=== PATIENT | male | born 1950 | race Caucasian/White ===

== ENCOUNTER → 2018-11-03 09:24 | Outpatient (CLI) | payer MEDICARE, SELFPAY ==
--- NOTE | 2018-11-03 09:26 | MR_ITS ---
MR head/brain wo/w con Ordering Physician: Steve Valle MD Patient Age: 68 years: Male HISTORY: ITS.REASON: FACIAL NUMBNESS, LEFT ARM WEAKNESS Facial numbness and left arm weakness. Left-sided of face numb weakness left arm and left leg. Slurred speech 4 days. TECHNIQUE: : Precontrast Multiplanar FLAIR, T1, T2 weighted images along with axial diffusion/ADC imaging performed on 1.5 T. Siemens, MRI. Additional blood sensitiveT2*performed Postcontrast imaging [id number] ProHance T1-weighted images axial & coronal plane performed COMPARISON :No previous studies for comparison Head CT available FINDINGS There is a 9 mm round area of high signal on diffusion images at mid right thalamus .. . There is some associated T2 signal & T2 scan through likely present. However overall with given history I favor this is most likely a recent lacunar infarct here at the right thalamus. No blood is evident here on the blood sensitive sequences. This area shows no enhancement postcontrast, which speaks against a small mass lesion & there is there is no surrounding edema. No associated lesions elsewhere. . The FLAIR images do show some scattered small high signal foci in the deep white matter regions bilaterally most compatible with pre-existing minimal chronic small vessel deep white matter ischemic gliotic foci in changes commonly seen in nature in brain. Subtle rim of high signal about the ventricles reflect aging changes of dependent edema and likely some small vessel changes here as well. The midbrain, camelia and posterior fossa appear satisfactory. No lesions evident.. The cranial cervical junction is normal. Sella normal. Ventricles and basal cisterns appear satisfactory. Mild diffuse cerebral atrophy noted. Minor mucosal thickening floor the maxillary sinuses and borderline mucosal thickening ethmoid air cells. Otherwise paranasal sinuses are clear. No air-fluid levels or prominent findings. Generous Deviation nasal septum with convexity to the to the left The CP angles are clear. IACs unremarkable. Mastoid air cells unremarkable. Scalp and skull unremarkable. IMPRESSION 1. Findings support Subacute Lacunar Infarct at the mid right thalamus. ... ] ... Round 9.1 mm well-defined focal area mid right thalamus ....Signal patterns are most compatible with a recent lacunar infarct .... No blood evident here on blood sensitive sequences. ....No enhancement of this area postcontrast 2. Mild chronic small vessel deep white matter ischemic gliotic changes seen elsewhere at cerebral hemispheres
--- NOTE | 2018-11-03 10:15 | HMH.ITSHM ---
Current Home Medications as stated by this patient Sebastian Latif or warehouse representative. []INVOKANA ASPIRIN LISINOPRIL ATORVASTATIN
== END ==
PROVIDERS: PCP Family Medicine; Visit Provider Family Medicine
DX: R29.898 Other symptoms and signs involving the musculoskeletal system (principal); R20.0 Anesthesia of skin
CPT/HCPCS: 70553; A9576

== ENCOUNTER 2018-11-24 09:04 | Outpatient (RCR) | payer MEDICARE, SELFPAY | END 2018-11-24 09:10 | disposition home or self-care (01) | LOC: OT 09:04 | PROVIDERS: Visit Provider Family Medicine | DX: I63.81 Other cerebral infarction due to occlusion or stenosis of small artery (principal); R29.818 Other symptoms and signs involving the nervous system | CPT/HCPCS: 97165 ==

== ENCOUNTER → 2020-08-02 08:47 | Outpatient (CLI) | payer MEDICARE, SELFPAY ==
[2020-08-02 10:15] LABS: Coronavirus 19 IgG Antibody Negative (Negative); Coronavirus 19 IgM Antibody Negative (Negative)
== END ==
PROVIDERS: Visit Provider Internal Medicine Gastroenterology
DX: Z01.818 Encounter for other preprocedural examination (principal); Z11.52 Encounter for screening for COVID-19; Z12.11 Encounter for screening for malignant neoplasm of colon
CPT/HCPCS: 36415; 86328

== ENCOUNTER 2020-08-04 07:20 | Day surgery (SDC) | payer MEDICARE, SELFPAY ==
[2020-07-28 11:55] VITALS: BMI 36.5
[2020-08-04 07:36] VITALS: BP 131/74; PULSE 86; RESP 18; TEMP 36.1; O2SAT 99
--- NOTE | 2020-08-04 07:50 | P.PN_ITS ---
[facility] Anesthesia Checklist - Patient Identification Patient Identification: Arm Band - Structural Data Admitted From: Home Planned Operative Procedure/s: Colonoscopy Consent for Planned Operative Procedure(s) Verified: Yes Verified Documents: Surgical Consent, History and Physical - NPO Status Verified Time NPO: 00:00 - Additional verifications Anesthesia Reactions: No - Airway Assessment C-Spine Mobility Assessed: Yes (mp2) TMJ Mobility Assessed: Yes Dentition: Good Dentition - Neurological Assessment Level of Consciousness: Awake, Alert - Anesthesia Plan Anesthesia Risk discussed: Yes Anesthesia Plan: Verified ASA Class: III Anesthesia Type: MAC [facility] History I have reviewed the patient's past medical history: Yes Medical History: Reports:: Cerebrovascular Accident, Diabetes Mellitus Type 2, Hyperlipidemia, Hypertension Denies:: Cancer, Diabetes Mellitus Type 1, Internal Pacemaker, MRSA, Seizures *Have you ever received a pneumonia vaccine?: Yes (2018) *Have you received a flu vaccine this season?: Yes Anesthesia experience/problems:: nac Laterality Cases: Bilateral: Tonsillectomy Other Surgeries: Yes: Hernia Repair, Other. No: Pacemaker Amputation: No Fractures: Yes (ARM) - *Social History Last grade of school completed: Some college Smoking Status: Never smoker Alcohol Intake: current Alcohol Intake Frequency:: a few times a month Substance Use Type: denies use *Occupational Status:: retired Housing: house Household Members: significant other *Travel in the last 8 weeks: None Family Hx:: Unable to obtain
[2020-08-04 07:55] VITALS: O2SAT 97
[2020-08-04 07:55] LABS: POC Glucose,Bedside 131 (70-110)
--- NOTE | 2020-08-04 07:57 | HMH.PROC ---
[facility] Procedure Note Procedure Note:: Colonoscopy Procedure Report: Colonoscopy with cold snare polypectomy Endoscopist: David Irizarry II, MD Referring physician: Steve Valle MD Date of Procedure: August 04, 2020 Equipment: Olympus 180 variable stiffness pediatric colonoscope Sedation: MAC sedation Indication: Mr. Latif is a 69-year-old gentleman who had initial colonoscopy in July 2019 and had 7 adenomatous polyps removed ranging in size from 3 to 14 mm. He reports no abdominal pain, weight loss, change in his bowel habits or rectal bleeding. He reports no family history of colon cancer. Procedure: Prior to the procedure, a history and physical exam was performed, and patient's medications and allergies were reviewed. The risks, benefits and alternatives of the sedation and procedure were discussed with the patient. All questions were answered and informed consent was obtained. The patient was brought to the procedure room. Patient identification and proposed procedure were verified by the physician and the nurse. The patient was placed in a left lateral decubitus position and the scope was passed under direct vision. Throughout the procedure, the patient's blood pressure, pulse, and oxygen saturations were monitored continuously. The colonoscopy was accomplished without difficulty. The patient tolerated the procedure well. Findings: On digital rectal examination there was normal rectal tone. There were no external hemorrhoids. The prostate was 2+, mildly firm but symmetric without nodules. The colonoscope was introduced through the anal canal to the rectum and advanced to the cecum. The ileocecal valve and appendiceal orifice were identified. The scope was advanced a short distance into the ileum which appeared grossly normal. The scope was then withdrawn into the colon. The cecum, ascending and transverse colon and mucosa were grossly normal. There were a total of 6 diminutive polyps (descending x3 (3, 3 and 4 mm) and sigmoid x3 (2, 3 and 4 mm)) all removed via cold snare polypectomy. There were scattered diverticuli throughout the descending and sigmoid colon (LEFT colon). The rectum itself was normal. Upon retroflexion within the rectum there were grade 1-2 internal hemorrhoids. The preparation was excellent throughout with [place] Preparation Score of 9. The cecal time was 12 minutes. Impression: 1. Diminutive colonic polyps x6 (2-4 mm) 2. Left-sided diverticulosis 3. Grade 1-2 internal hemorrhoids Plan: I will follow up the polyp pathology and recommend repeat colonoscopy again in 3 years based upon the number, size and polyp histology. I would encourage fiber supplementation on a long-term daily maintenance basis.
[2020-08-04 08:18] VITALS: BP 81/45; PULSE 76; RESP 12; TEMP 36.2; O2SAT 93
[2020-08-04 08:28] VITALS: BP 94/52; PULSE 84; RESP 16; O2SAT 95
[2020-08-04 08:38] VITALS: BP 99/58; PULSE 76; RESP 16; O2SAT 96
[2020-08-04 08:48] VITALS: BP 110/65; PULSE 74; RESP 16; TEMP 36.2; O2SAT 96
== END 2020-08-04 08:51 | disposition home or self-care (01) ==
LOC: OUTP 07:24
PROVIDERS: PCP Family Medicine; Visit Provider Internal Medicine Gastroenterology
PROC: 0DJD8ZZ Inspection of Lower Intestinal Tract, Via Natural or Artificial Opening Endoscopic (ICD-10-PCS; CPT 45378; principal; 2020-08-04 08:30)
DX: Z09 Encounter for follow-up examination after completed treatment for conditions other than malignant neoplasm (principal); Z86.010 Personal history of colon polyps; K63.5 Polyp of colon; K64.1 Second degree hemorrhoids; K57.30 Diverticulosis of large intestine without perforation or abscess without bleeding; I10 Essential (primary) hypertension; E78.5 Hyperlipidemia, unspecified; E11.9 Type 2 diabetes mellitus without complications; Z86.73 Personal history of transient ischemic attack (TIA), and cerebral infarction without residual deficits; Z90.49 Acquired absence of other specified parts of digestive tract; Z79.899 Other long term (current) drug therapy
CPT/HCPCS: 45385; 82962; 88305

== ENCOUNTER → 2020-08-07 10:24 | Outpatient (POV) | payer MEDICARE, SELFPAY | PROVIDERS: Visit Provider Audiologist | DX: Z00.00 Encounter for general adult medical examination without abnormal findings (principal) ==

== ENCOUNTER → 2020-08-28 08:55 | Outpatient (POV) | payer MEDICARE, SELFPAY | PROVIDERS: Visit Provider Audiologist | DX: Z00.00 Encounter for general adult medical examination without abnormal findings (principal) ==

== ENCOUNTER → 2021-06-12 10:22 | Outpatient (CLI) | payer MEDICARE, SELFPAY ==
[2021-06-12 11:12] LABS: Hemoglobin A1C 7.2 % (4.0-6.0)
[2021-06-12 11:40] LABS: Glucose,Random 126 mg/dL (74-100)
== END ==
PROVIDERS: Visit Provider Family Medicine
DX: E11.9 Type 2 diabetes mellitus without complications (principal)
CPT/HCPCS: 36415; 82947; 83036

== ENCOUNTER → 2022-09-27 17:10 | Outpatient (CLI) | payer MEDICARE, SELFPAY ==
[2022-09-27 19:30] LABS: Microscopic, Urine URINE MICROSCOPIC (MICROSCOPIC)
[2022-09-27 19:37] LABS: Appearance,Urine CLOUDY (Clear); Bilirubin,Urine Negative (Negative); Blood, Urine 3+ (Negative); Color,Urine YELLOW (Yellow); Glucose,Urine (UA) 3+ (Negative); Ketones,Urine Negative (Negative); Leukocyte Esterase,Urine 1+ (Negative); Nitrate,Urine POSITIVE (Negative); Protein,Urine 1+ (Negative); Specific Gravity, Urine 1.025 (1.005-1.030); Urobilinogen,Urine 0.2 EU/dl (0.2)
[2022-09-27 20:10] LABS: Bacteria,Urine 3+ /lpf
== END ==
PROVIDERS: PCP Family Medicine; Visit Provider Family Medicine
DX: N40.1 Benign prostatic hyperplasia with lower urinary tract symptoms (principal); N39.498 Other specified urinary incontinence; N39.0 Urinary tract infection, site not specified; R33.8 Other retention of urine; B96.1 Klebsiella pneumoniae [K. pneumoniae] as the cause of diseases classified elsewhere
CPT/HCPCS: 81001; 87086; 87088; 87186

== ENCOUNTER → 2022-10-08 13:12 | Outpatient (CLI) | payer MEDICARE, SELFPAY | PROVIDERS: PCP Family Medicine; Visit Provider Family Medicine | DX: R06.83 Snoring; G47.33 Obstructive sleep apnea (adult) (pediatric) | CPT/HCPCS: G0399 ==

== ENCOUNTER 2022-11-08 04:49 | Emergency (ER) | payer MEDICARE, SELFPAY ==
[2022-11-08] VITALS (14 sets, daily range): BP systolic 74–119; BP diastolic 35–56; PULSE 94–124; RESP 16–26; TEMP 37.8–39.9; O2SAT 88–96; BMI 38.0
--- NOTE | 2022-11-08 04:39 | ECG_ITS ---
APPROVED REPORT Exam: Resting ECG HR:125 bpm ECG Measurements Heart Rate 125 AXES DE 151 P 28 QRSd 88 QRS 74 QT 269 T -32 QTc 343 Conclusion SINUS TACHYCARDIA NONSPECIFIC ST & T-WAVE ABNORMALITY ABNORMAL ECG UNCONFIRMED REPORT Electronically signed by : Sebastian Reynolds MD 11/09/2022 20:42:22
--- NOTE | 2022-11-08 04:52 | XR_ITS ---
PROCEDURE INFORMATION: Exam: XR Pelvis Exam date and time: 11/08/2022 6:06 AM Age: 72 years old Clinical indication: Injury or trauma; Fall TECHNIQUE: Imaging protocol: Radiologic exam of the pelvis. Views: 1 or 2 view. Two AP images of the pelvis COMPARISON: CT ABDOMEN PELVIS W CON 11/08/2022 5:40 AM FINDINGS: Bones/joints: Postop changes thoracolumbar fusion. There is a mild scoliosis. Degenerative changes of the spine. The bony pelvis appears intact, the hips are unremarkable. Soft tissues: Unremarkable. IMPRESSION: There is no evidence of acute fracture or malalignment.
--- NOTE | 2022-11-08 04:53 | XR_ITS ---
PROCEDURE INFORMATION: Exam: XR Chest Exam date and time: 11/08/2022 6:06 AM Age: 72 years old Clinical indication: Injury or trauma; Fall; Additional info: SOA TECHNIQUE: Imaging protocol: Radiologic exam of the chest. Views: 1 view. COMPARISON: CT CHEST WO CON 11/08/2022 5:49 AM FINDINGS: Lungs: Hypoventilatory changes of the lungs, with perihilar vascular crowding and a diffuse increase in pulmonary parenchymal density. Mild atelectasis medial right lung base. Pleural spaces: Unremarkable. No pleural effusion. No pneumothorax. Heart/Mediastinum: Unremarkable. No cardiomegaly. Bones/joints: Postop thoracolumbar fusion. No acute fracture evident. IMPRESSION: Mild dependent atelectasis at the right lung base.
--- NOTE | 2022-11-08 04:56 | CT_ITS ---
PROCEDURE INFORMATION: Exam: CT Abdomen And Pelvis With Contrast Exam date and time: 11/08/2022 5:40 AM Age: 72 years old Clinical indication: Nausea TECHNIQUE: Imaging protocol: Computed tomography of the abdomen and pelvis with contrast. Radiation optimization: All CT scans at this facility use at least one of these dose optimization techniques: automated exposure control; mA and/or kV adjustment per patient size (includes targeted exams where dose is matched to clinical indication); or iterative reconstruction. Contrast material: ISOVUE; Contrast volume: 75 ml; Contrast route: IV; REPORTING DATA: Count of CT and Cardiac NM exams in prior 12 months: This patient has received 3 known CTs and 0 known cardiac nuclear medicine studies in the 12 months prior to the current study. COMPARISON: No relevant prior studies available. FINDINGS: Lungs: Mild dependent atelectasis and ground-glass opacities in the lung bases. Coronary arteries: Coronary artery calcifications are present. Liver: There is a diffuse decrease in liver parenchymal density, consistent with fatty infiltration. Gallbladder and bile ducts: Normal. No calcified stones. No ductal dilation. Pancreas: Normal. No ductal dilation. Spleen: The spleen demonstrates punctate calcifications, consistent with remote granulomatous organism exposure. Adrenal glands: Normal. No mass. Kidneys and ureters: Small amount of perinephric fluid bilaterally. Small amount of free fluid inferior to the tip of the liver and within the right paracolic gutter. Renal scarring is seen on the right associated with a 12 mm calculus. Nonspecific focal gas within the superior right renal collecting system. Punctate non-obstructing calculus lower pole of the right kidney. 4.2 cm simple cyst lower pole right kidney. The left kidney is unremarkable. There is mild right hydronephrosis. 12 x 7 mm calculus proximal right ureter, this can be seen on the motor man image. Stomach and bowel: There is no evidence of intestinal perforation or obstruction. Anastomotic clips involving small bowel loops in the mid abdomen. Appendix: A normal appendix is identified. Intraperitoneal space: Free fluid around the kidneys, adjacent to the inferior tip of the liver and within the right paracolic gutter. No free air. Vasculature: Mild atherosclerotic changes of the aorta and branch vessels. Lymph nodes: Unremarkable. No enlarged lymph nodes. Urinary bladder: The bladder is decompressed. There is a small amount of intraluminal bladder gas consistent with instrumentation. Reproductive: Unremarkable as visualized. Bones/joints: Degenerative changes of the spine. Surgical changes are incidentally noted in the lower thoracic and lumbar spine. Posterior fusion rods span T12 with mild compression fracture which appears chronic. There is retropulsion of bone into the spinal canal. Soft tissues: Unremarkable. IMPRESSION: 1. Mildly obstructing 12 x 7 mm calculus in the proximal right ureter. There is focal gas within the right renal collecting system as well as minimal gas in the urinary bladder which may be secondary to instrumentation versus emphysematous pyelitis. 2. Right nephrolithiasis and right renal scarring. 3. Surgical changes are incidentally noted in the lower thoracic and lumbar spine. Posterior fusion rods span T12 with mild compression fracture which appears chronic. There is retropulsion of bone into the spinal canal. COMMENTS: Consistent with the [employer]'s Incidental Findings Committee white paper (J Am Humza Radiol 2018): Any incidental renal lesion less than 1 cm or classified as too small to
[2022-11-08 05:01] LABS: Coronavirus 19, PCR Not Detected (NotDetected); Influenza A, PCR Not Detected (NotDetected); Influenza B, PCR Not Detected (NotDetected)
[2022-11-08 05:05] LABS: Basophils % 0.3 % (0.1-2.0); Eosinophils % 0.4 % (0.1-12.0); Hematocrit 37.8 % (42.0-52.0); Lymphocytes # 0.3 K/mm3 (0.7-4.5); Lymphocytes % 13.8 % (10-50); Mean Corpuscular HGB Conc 31.7 g/dL (31.8-35.4); Mean Corpuscular Volume 82.2 fl (80-94); Mean Platelet Volume 8.4 fl (7.4-10.4); Monocytes % 2.1 % (1.7-9.3); Neutrophils # 1.7 K/mm3 (1.8-7.8); Neutrophils % 83.3 % (37.0-80.0); Platelet Count 162 K/mm3 (142-424); Red Cell Distribution Width 15.2 % (11.5-17.5)
[2022-11-08 05:11] LABS: Alanine Aminotransferase 29 U/L (12-78); Albumin Level 3.7 g/dl (3.5-5.0); Alkaline Phosphatase 125 U/L (38-126); Anion Gap 12.9 mEq/L (5-15); Aspartate Amino Transferase 36 U/L (17-59); Bilirubin,Direct 0.2 mg/dl (0.0-0.4); Bilirubin,Indirect 1.2 mg/dL (0.0-0.9); Bilirubin,Total 1.4 mg/dl (0.2-1.3); Bilirubin,Unconjugated 1.3 mg/dL (0.0-1.1); Blood Urea Nitrogen 28 mg/dl (9-20); Calcium 8.9 mg/dl (8.4-10.2); Carbon Dioxide 20 mmol/L (22.0-30.0); Chloride 102 mmol/L (98-107); Creatinine Clearance Estimated 56 mL/min (50-200); Estimated Glomerular Filt Rate 35 ml/min (>60); GFR (African American) 42 ML/MIN (>60); Glucose 180 mg/dl (74-100); Magnesium 1.5 mg/dl (1.6-2.3); Potassium 3.9 mmoL/L (3.5-5.1); Sodium 131 mmol/L (136-145); Total Protein,Serum 6.7 g/dl (6.3-8.2)
[2022-11-08 05:23] LABS: C-Reactive Protein 161.6 mg/L (0-4)
[2022-11-08 05:25] LABS: NT Pro Brain Natriuretic Pep. 750 pg/mL (0-125); Troponin I 0.02 ng/ml (0.00-0.034)
--- NOTE | 2022-11-08 05:25 | CT_ITS ---
PROCEDURE INFORMATION: Exam: CT Cervical Spine Without Contrast Exam date and time: 11/08/2022 5:37 AM Age: 72 years old Clinical indication: Injury or trauma; Fall TECHNIQUE: Imaging protocol: Computed tomography of the cervical spine without contrast. Radiation optimization: All CT scans at this facility use at least one of these dose optimization techniques: automated exposure control; mA and/or kV adjustment per patient size (includes targeted exams where dose is matched to clinical indication); or iterative reconstruction. REPORTING DATA: Count of CT and Cardiac NM exams in prior 12 months: This patient has received 3 known CTs and 0 known cardiac nuclear medicine studies in the 12 months prior to the current study. COMPARISON: CT HEAD/BRAIN WO CON 11/08/2022 5:34 AM FINDINGS: Bones/joints: There is spondyloarthropathy. There is no acute fracture or dislocation. There are degenerative disc changes. Lungs: The lung apices demonstrate no acute process. Soft tissues: Unremarkable. IMPRESSION: No acute process or fracture. There is spondyloarthropathy and degenerative disc disease.
--- NOTE | 2022-11-08 05:25 | CT_ITS ---
PROCEDURE INFORMATION: Exam: CT Head Without Contrast Exam date and time: 11/08/2022 5:34 AM Age: 72 years old Clinical indication: Injury or trauma; Fall TECHNIQUE: Imaging protocol: Computed tomography of the head without contrast. Radiation optimization: All CT scans at this facility use at least one of these dose optimization techniques: automated exposure control; mA and/or kV adjustment per patient size (includes targeted exams where dose is matched to clinical indication); or iterative reconstruction. REPORTING DATA: Count of CT and Cardiac NM exams in prior 12 months: This patient has received 3 known CTs and 0 known cardiac nuclear medicine studies in the 12 months prior to the current study. COMPARISON: BRAINWW MR head/brain wo/w con 11/03/2018 9:36 AM FINDINGS: Brain: There is diffuse cortical volume loss and hypoattenuation of the deep white matter. No evidence of acute intracranial hemorrhage. No acute cerebral edema, mass effect or shift. Cerebral ventricles: No ventriculomegaly. Paranasal sinuses: There is mucosal thickening of the ethmoid and maxillary sinuses. Mastoid air cells: Visualized mastoid air cells are well aerated. Bones/joints: Unremarkable. No acute fracture. Soft tissues: Unremarkable. IMPRESSION: No acute intracranial process. Diffuse cortical atrophy and chronic deep white matter small vessel disease.
--- NOTE | 2022-11-08 05:27 | PC.NURSE ---
Critical lactic of 4.0 called by lab. notified
[2022-11-08 05:30] LABS: Procalcitonin 31.4 ng/mL (0.0-2.0)
--- NOTE | 2022-11-08 05:45 | CT_ITS ---
PROCEDURE INFORMATION: Exam: CT Chest Without Contrast; Diagnostic Exam date and time: 11/08/2022 5:49 AM Age: 72 years old Clinical indication: Fever and shortness of breath; Additional info: Cough, SOA TECHNIQUE: Imaging protocol: Diagnostic computed tomography of the chest without contrast. Radiation optimization: All CT scans at this facility use at least one of these dose optimization techniques: automated exposure control; mA and/or kV adjustment per patient size (includes targeted exams where dose is matched to clinical indication); or iterative reconstruction. REPORTING DATA: Count of CT and Cardiac NM exams in prior 12 months: This patient has received 3 known CTs and 0 known cardiac nuclear medicine studies in the 12 months prior to the current study. COMPARISON: CT ABDOMEN PELVIS W CON 11/08/2022 5:40 AM FINDINGS: Lungs: Mild dependent atelectasis bilaterally. No focal consolidation. Calcified granulomas right lung. Pleural spaces: Unremarkable. No pneumothorax. No pleural effusion. Heart: Normal cardiac size, no pericardial effusion. Coronary arteries: There is severe atherosclerotic calcification of the coronary arteries. Lymph nodes: Small calcified right hilar lymph nodes. No lymphadenopathy the. Vasculature: Mild atherosclerotic changes of the aorta and branch vessels. Bones/joints: Degenerative changes of the spine. Postop changes thoracolumbar spinal fusion. Chronic deformity of the left medial 10th rib. Chronic sternal deformity with callus formation. Soft tissues: Unremarkable. IMPRESSION: 1. Mild dependent atelectasis bilaterally. 2. Evidence for prior granulomatous disease. 3. Other chronic findings are detailed above.
[2022-11-08 05:57] LABS: Erythrocyte Sedimentation Rate 49 mm/hr (0-20)
--- NOTE | 2022-11-08 06:01 | PC.NURSE ---
Per patients , patient had had an indwelling byrd catheter since August that was discontinued one week ago. Pt was seen by urology who managed the byrd and was diagnosed with a uti and given macrobid. Patient was advised to continue the macrobid until he had his byrd removed on Tuesday but patient was not rechecked to see if he still had a uti. states that the patient was chilling several times yesterday and she checked his temperature temporally but the thermometer didnt indicate a fever.
[2022-11-08 06:17] LABS: ABG Base Excess -3.4 mmol/L (-2.4-2.3); ABG HCO3 21.2 mmhg (22.0-26.0); ABG Oxygen Saturation 93 % (90-100); ABG PCO2 33.6 mmhg (35.0-45.0); ABG PH 7.42 mmol/L (7.35-7.45); ABG PO2 67.1 mmhg (80-100); ABG TCO2 22.2 mmhg (23-27)
[2022-11-08 06:20] LABS: Allen's Test Acceptable; Oxygen 28% NC %; Source Right Radial
[2022-11-08 06:21] LABS: Microscopic, Urine URINE MICROSCOPIC (MICROSCOPIC)
[2022-11-08 06:23] LABS: Appearance,Urine CLEAR (Clear); Bilirubin,Urine Negative (Negative); Blood, Urine 3+ (Negative); Color,Urine YELLOW (Yellow); Glucose,Urine (UA) 3+ (Negative); Ketones,Urine TRACE (Negative); Leukocyte Esterase,Urine Negative (Negative); Nitrate,Urine Negative (Negative); PH,Urine 5.5 (5.0-8.5); Protein,Urine TRACE (Negative); Urobilinogen,Urine 0.2 EU/dl (0.2)
--- NOTE | 2022-11-08 06:28 | HMH.EDSOB ---
Discharge Plan Disposition Patient Disposition: Xfer Short-Term Hosp Chief Complaint: Shortness of Breath/Dyspnea Prescriptions Prescriptions: No Action lisinopril 40 mg tablet 40 mg PO DAILY tamsulosin 0.4 mg capsule 0.4 mg PO DAILY lactulose 10 gram/15 mL solution 10 g PO DAILY glipizide 2.5 mg tablet extended release 24hr 2.5 mg PO DAILY gabapentin 400 mg capsule 400 mg PO TID finasteride 5 mg tablet 5 mg PO DAILY diclofenac sodium 1 % gel 2 g topical QID PRN (Reason: arthritis) atorvastatin 40 MG tablet 40 mg PO HS aspirin 81 MG tablet,delayed release (DR/EC) 81 mg PO DAILY canagliflozin 300 MG tablet 300 mg PO DAILY montelukast 10 MG tablet 10 mg PO PM loratadine 10 MG tablet 10 mg PO DAILY fluticasone propionate 120 SPR/BOT bottle 1 spr intranasal DAILY Referrals Follow up/Referrals: Steve Valle MD [Primary Care Provider] - See instructions Clinical Impressions Clinical Impression: Severe sepsis with acute organ dysfunction, Septic shock, Emphysematous pyelitis, Diabetes, BMI 38.0-38.9,adult Stand Alone Forms Stand Alone Forms: Transfer Record - ED Discharge ED Provider: Sonia (ED)Jack Resp/SOB HPI General Chief Complaint: Shortness of Breath/Dyspnea Stated Complaint: SOB Time Seen by Provider: 11/08/22 06:00 Mode of Arrival: EMS Source of Information: Patient, Spouse, EMS and Medical Record Limitations: No Limitations Description of Symptoms (Recalled from ER Triage Doc. by RN): Pt arrives via ems. Per ems, pt fell yesterday at home and injured his left hip. Pt did not tell his family that he fell until tonight. Pt woke up at 0200 c/o soa, nausea and cough. EMS states that patient was also confused upon arrival and was trying to eat his hearing aides. Per patients , he has also had increased weakness and is not able to ambulate as well as he has been (patient was seen in August at after falling from a roof and has been getting physical therapy). Also states that patient has been increasingly confused. States that last night before bed he was mumbling and she couldnt understand him. Patient also had an episode of urinary incontinence this morning which is not his baseline. Additionally states that patient has had nausea and vomiting and c/o being short of air this am when he woke up. History of Present Illness pt with hx of spinal cord injury in aug and has been home for 2 months and had byrd removed last week - pt has been using walker and has lt foot drop -pt with fall yesterday and some lt hip pain - pt was noted to be sob this am and chills and noted to have fever in ed MD Complaint: shortness of breath Onset (ago): hour(s) Severity: moderate Consistency/Duration: intermittent Related Data Home oxygen amount: none Home Medications Medication Instructions Recorded Confirmed aspirin 81 mg tablet,delayed 81 mg PO DAILY HEART HEALTH 12/03/18 11/08/22 release atorvastatin 40 mg tablet 40 mg PO HS Cholesterol 12/03/18 11/08/22 canagliflozin 300 mg tablet 300 mg PO DAILY Diabetes 12/03/18 11/08/22 fluticasone propionate 50 1 spr intranasal DAILY Allergy 07/28/20 11/08/22 mcg/actuation nasal symptoms spray,suspension loratadine 10 mg tablet 10 mg PO DAILY Allergy symptoms 07/28/20 11/08/22 montelukast 10 mg tablet 10 mg PO PM Allergy symptoms 07/28/20 11/08/22 diclofenac sodium 1 % topical gel 2 g topical QID PRN arthritis 10/27/22 11/08/22 finasteride 5 mg tablet 5 mg PO DAILY urinary retention 10/27/22 11/08/22 gabapentin 400 mg capsule 400 mg PO TID Pain 10/27/22 11/08/22 glipizide 2.5 mg tablet, extended 2.5 mg PO DAILY Diabetes 10/27/22 11/08/22 release 24 hr lactulose 10 gram/15 mL oral 10 g PO DAILY ammonia 10/27/22 11/08/22 solution lisinopril 40 mg tablet 40 mg PO DAILY High blood pressure 10/27/22 11/08/22 tamsulosin 0.4 mg capsule 0.4 mg PO DAILY enlarged prostate 10/27/22 0
--- NOTE | 2022-11-08 06:42 | PC.NURSE ---
FRANCISCA Guzmán speaking with pt and family and this time
[2022-11-08 06:51] LABS: Bacteria,Urine 3+ /lpf
--- NOTE | 2022-11-08 07:02 | PC.NURSE ---
placed call to [facility] for transfer
--- NOTE | 2022-11-08 08:02 | PC.NURSE ---
Report called to Samantha SCOTT at [facility]
[2022-11-08 08:59] LABS: Reflex Lactic Add Lactic Reflex
--- NOTE | 2022-11-09 01:04 | PC.NURSE ---
RECEIVED NOTIFICATION OF POSITIVE PRELIMINARY CULTURES. FAXED REPORT TO [phone] .PATIENT WAS TRANSFERRED TO [facility] FOR DISPOSITION.
== END 2022-11-08 09:04 | disposition short-term general hospital (02) ==
PROVIDERS: Emergency Provider Emergency Medicine; PCP Family Medicine
DX: A41.89 Other specified sepsis (principal); R65.21 Severe sepsis with septic shock; N12 Tubulo-interstitial nephritis, not specified as acute or chronic; E11.65 Type 2 diabetes mellitus with hyperglycemia; I95.89 Other hypotension; E87.1 Hypo-osmolality and hyponatremia; R94.31 Abnormal electrocardiogram [ECG] [EKG]; Z79.84 Long term (current) use of oral hypoglycemic drugs
CPT/HCPCS: 51702; 70450; 71045; 71250; 72125; 72170; 74177; 80048; 80076; 81001; 82803; 83605; 83735; 83880; 84145; 84484; 85025; 85651; 86140; 87040; 87077; 87086; 87088; 87186; 93005; 96361; 96374; 96375; 99291; C9803; J0696; J2405; Q9967; U0003; U0005

== ENCOUNTER 2023-05-24 08:00 | Outpatient (RCR) | payer MEDICARE, SELFPAY ==
--- NOTE | 2023-02-02 12:12 | HMH.PTOPEV ---
PT Outpatient Evaluation Rehab PT Outpatient Evaluation Start: 02/02/23 10:40 Freq: Status: Active Protocol: Document 02/02/23 10:41 DONNA (Rec: 02/02/23 12:12 DONNA [id number]) E-signed By Anjali Sanchez, PT Outpatient Therapy Subjective History Subjective History Pt is a 72 y/o male who reports he fell off a ladder in August resulting in 3 fractured vertebrae, a bruised spinal cord and a fractured sternum. Pt reports he had rods and screws placed in his back at T11, T12 and L1. Pt reports he had xrays after the surgery with good report. Pt reports he was at [facility] for 2 weeks then went to [facility] for PT/OT rehabilitation for 3 weeks and then transitioned to home health PT/OT which he recently finished. Pt reports he has L foot drop from the injury and was unable to walk directly after surgery. Pt reports he received a customized AFO on 11/03/22 and has been using it since without issues. Pt reports he also started using a rollator walker recently without issues , denies recent falls. Pt reports he had a couple of set backs in October involving a kidney stent placement with 1 week of hospitalization and then had to return to [facility] for 10 more days due to regression . Pt also states he was on a mechanical ventilator for 24hrs due to stridor breathing prior to the kidney issues. Pt reports he continues to have LE weakness L>R and inability to move the L ankle. Pt reports hypersensitivity of bilateral buttocks region but denies pain. Pt reports he will intermittently get brief shocks down his legs as well. Pt reports he has
--- NOTE | 2023-03-01 08:57 | HMH.RHREAS ---
Rehab Reassessment Rehab OP Re-assessment Start: 02/02/23 10:40 Freq: Status: Active Protocol: Document 03/01/23 08:16 EITANMAYRA (Rec: 03/01/23 08:57 DONNA [id number]) E-signed By Anjali Sanchez PT Rehab Re-assessment Subjective Subjective Pt reports he feels 30-40% improved since starting PT. Pt reports he does his HEP sometimes. Pt reports he saw his neurosurgeon in mid January where they did xrays with good report. Pt reports he returns to his surgeon in June. Pt states he continues to have nerve pain and sensitivity in the buttocks region. Pt reports he has still been using his RW for household/ community ambulation but feels that he is improving using a quad cane in the clinic. Pt reports is now able to don his shoes & AFO independently. Objective Objective Notes Endurance: NuStep x10' with RPE 5/10 5x sit to stand: 13 from elevated table height with 1 arm support LLE MMT: hip flexion 4/5, hip abd/add 4/5, knee ext 4+/5, knee flex 4-/5, ankle DF 1/5 RLE MMT: hip flexion 4+/5, hip abd/add 4/5, knee ext 4+/5, knee flex 4+/5, ankle DF 4/5 Assessment Progress Assessment Progressing as Expected Assessment Notes Pt has attended 7 PT sessions consisting of aerobic exercise , gait training with quad cane , balance/proprioception training, functional LE strengthening, and Mauritian estim for L ankle DF. Pt demonstrated improved endurance, LE strength and 5x sit to stand this date compared to initial evaluation . Pt continues to require a RW and AFO for safe ambulation and reports SOA/fatigue with functional activities such
--- NOTE | 2023-03-31 10:05 | HMH.RHREAS ---
Rehab Reassessment Rehab OP Re-assessment Start: 02/02/23 10:40 Freq: Status: Active Protocol: Document 03/31/23 08:45 DONNA (Rec: 03/31/23 10:05 DONNA [id number]) E-signed By Anjali Sanchez PT Rehab Re-assessment Subjective Subjective Pt reports he feels that he is improving in overall strength , endurance and balance with PT treatment. Pt reports he has been more compliant with his HEP. Pt reports he has improved with walking with his quad cane vs. RW, performing sit to stand transfers with less difficulty, and decreased LOB with gait. Pt reports he has practiced using his quad cane some around the house but uses the RW for community ambulation. Pt denies recent falls. Pt reports his is on vacation this week so he has been performing all ADLs independently including cooking/cleaning without issues. Objective Objective Notes Gait analysis: Step to pattern with quad cane, improved stride length and forward visual gaze with less LOB and able to self correct if small LOB occurs Stair analysis: step to pattern with one HR CGA during ascending, minAx1 during descending stairs NuStep: level 5 x15' with RPE 6/10 5x S2S from standard chair without UE support: 21 TU minute 6 seconds with SBA and quad cane LE MMT: 4- 4/5 grossly with exception of L ankle Assessment Progress Assessment Progressing as Expected Assessment Notes Pt has attended 16 PT visits consisting of aerobic exercise , gait training, balance/ proprioception training, and functional LE strengthening with improved tolerance. Pt
--- NOTE | 2023-05-05 09:42 | HMH.RHREAS ---
Rehab Reassessment Rehab OP Re-assessment Start: 02/02/23 10:40 Freq: Status: Active Protocol: Document 05/05/23 09:24 DONNA (Rec: 05/05/23 09:41 DONNA [id number]) E-signed By Anjali Sanchez PT Rehab Re-assessment Subjective Subjective Pt reports he continues to improve overall especially in regards to strength and endurance. Pt reports he feels he could still improve in regards to his balance and ambulation with a quad cane. Pt reports he uses his RW for community ambulation but has recently starting using his quad cane for household ambulation with increased confidence. Pt reports he continues to have fear of falling/LOB, denies falls. Pt reports compliance with his HEP. Objective Objective Notes LLE MMT: hip flex 4/5, knee ext 5/5, knee flex 4+/5, hip abd/add 4+/5, ankle DF 4+/5 RLE MMT: hip flex 4+/5, knee ext 5/5, knee flex 5/5, hip abd/add 4+/5 NuStep: level 5 x15' with RPE 5/10 Gait analysis: Step to pattern with quad cane, improved stride length and forward visual gaze with less LOB and able to self correct if small LOB occurs - able to perform with SBA vs CGA Stair analysis: step to pattern with one HR CGA during ascending/descending stairs; unable to perform reciprocal pattern safely due to LLE foot drop even with AFO donned 5x S2S from standard chair with 1 arm support: 15 TU with SBA and quad cane Assessment Progress Assessment Progressing as Expected Assessment Notes Pt demonstrated improved LE strength, 5x sit to stand time , and improved TUG time since
== END 2023-05-24 08:05 | disposition home or self-care (01) ==
LOC: PT 08:00
PROVIDERS: Visit Provider Family Medicine
DX: M21.372 Foot drop, left foot (principal)
CPT/HCPCS: 97110; 97112; 97116; 97163; 97164; 97530

== ENCOUNTER 2024-03-08 08:57 | Outpatient (CLI) | payer MEDICARE, SELFPAY ==
--- NOTE | 2024-03-08 | XR_ITS ---
FINAL REPORT CLINICAL HISTORY: sob FINDINGS: 2 views of the chest were obtained . The heart is normal in size. The mediastinum is within normal limits. The lungs are clear. There is no pneumothorax. Osseous structures demonstrate spinal rods in the lower thoracic spine. IMPRESSION: No acute cardiopulmonary process. Reviewed, Interpreted and Dictated by Jonah Virk III, MD Transcribed by Dayan Reynolds Authenticated and . [facility]
== END 2024-03-08 23:59 | disposition home or self-care (01) ==
LOC: RAD 08:58
PROVIDERS: PCP Family Medicine; Visit Provider Family Medicine
DX: R06.02 Shortness of breath (principal)
CPT/HCPCS: 71046

== ENCOUNTER 2024-03-13 07:39 | Outpatient (CLI) | payer MEDICARE, SELFPAY ==
--- NOTE | 2024-03-13 | CA_ITS ---
APPROVED REPORT EXAM: Comprehensive 2D, Doppler, and color-flow Echocardiogram Insurance Sales Specialist: IRIS Ji, RVS Ht: 5 ft 8 in Wt: 260lbs BSA: 2.28 BP: 126/68 mmHg Indications: SOB, DM, Fatigue, Hx-CVA, HLD Echo Enhancing Agent Comments: TDS: due to chest circumference limited windows 2D Dimensions IVSd 1.45 cm LVEF (Visual) 58.50 % PWd 0.92 cm LA Volume 88.30 mL LVDd 4.90 cm LA Volume Index [id number] mL/m2 (M/F) 16-34 LVDs 3.38 cm Left Atrium 4.34 cm M-Mode Dimensions RVDd 2.06 cm (0.9-2.6) LA Diam 4.47 cm (1.9-4.0) LVDd 6.23 cm (3.5-5.7) LVDs 4.13 cm (3.5-5.7) IVSd 1.08 cm (0.6-1.1) PWd 1.19 cm (0.6-1.1) EF (Teich) 61.50% EPSs 0.72 cm FS 33.70% EDV (Teich) 196.10 mL TAPSE 2.52 (<1.7) ESV (Teich) 75.50 mL LV Diastology E Decel Time 170 (160-240 msec) E/A Ratio 1.02 MED A' 15.60 cm/s LAT A' 13.10 cm/s Aortic Valve SKYLAR Index 0.98 cm2/m2 AoV Peak Johnathan. 135.0 (50-130 cm/s) AO Peak GR. 7.30 mmHg AO Mean GR. 3.60 (<5 mmHg) AO VTI 31.8 (18-25 cm) SKYLAR (VTI) 2.28 (2.5-4.5 cm2) Mitral Valve MV A Velocity 105.0 (40-130 cm/s) E/A Ratio 1.02 Pulmonary Valve PV Peak Velocity 89.0 (50-150 cm/s) Left Ventricle The left ventricle is normal size. The left ventricular systolic function is normal. The left ventricular ejection fraction is within the normal range. There is increased LV wall thickness. There is normal LV segmental wall motion. The left ventricular diastolic function is normal. LVEF is 55%. Right Ventricle The right ventricle is normal size. The right ventricular systolic function is normal. Atria The left atrium size is normal. The right atrium size is normal. There is no Doppler evidence of interatrial shunt. Aortic Valve The aortic valve is mildly thickened. There is no aortic valvular stenosis. Mild aortic regurgitation. Mitral Valve The mitral valve is normal in structure. No evidence of mitral valve stenosis. There is no mitral valve regurgitation noted. Tricuspid Valve The tricuspid valve leaflets are thin and pliable. Trace tricuspid regurgitation. There is insufficient TR jet to estimate RVSP. Pulmonic Valve The pulmonary valve is normal in structure. Trace pulmonic regurgitation. Great Vessels The aortic root is normal in size. The ascending aorta is normal in size. IVC is normal in size and collapses >50% with inspiration. Pericardium There is no pericardial effusion. Other Information Study Quality: Fair Conclusion Normal biventricular systolic function. Mild AI. Electronically signed by : Heather Webb MD 03/14/2024 11:57:36
== END 2024-03-13 23:59 | disposition home or self-care (01) ==
LOC: RT 07:40
PROVIDERS: PCP Family Medicine; Visit Provider Family Medicine
DX: R06.02 Shortness of breath (principal)
CPT/HCPCS: 93306

== ENCOUNTER 2024-04-11 07:42 | Outpatient (CLI) | payer MEDICARE, SELFPAY ==
[2024-04-11] MEDS: ALBUTEROL 0.083% 2.5 MG/3 ML NEB IH (08:47)
== END 2024-04-11 23:59 | disposition home or self-care (01) ==
LOC: RT 07:42
PROVIDERS: PCP Family Medicine; Visit Provider Family Medicine
DX: R06.02 Shortness of breath (principal)
CPT/HCPCS: 94060; 94726; 94729; J7613

== ENCOUNTER 2024-09-05 10:53 | Outpatient (CLI) | payer MEDICARE, SELFPAY ==
--- NOTE | 2024-09-05 | XR_ITS ---
FINAL REPORT CLINICAL HISTORY: Left hip pain..fall from ladder FINDINGS: LEFT HIP 3 views of the left hip are obtained. There is no acute fracture or dislocation. There is mild left hip joint space narrowing. Hypertrophic changes are seen at the acetabular margin. Visualized joint spaces are normally aligned. There is no acute soft tissue abnormality. IMPRESSION: No acute bony abnormality. Reviewed, Interpreted and Dictated by Jose Nunes MD Transcribed by Dayan Reynolds Authenticated and . [facility]
== END 2024-09-05 23:59 | disposition home or self-care (01) ==
LOC: RAD 10:54
PROVIDERS: PCP Family Medicine; Visit Provider Family Medicine
DX: M25.552 Pain in left hip (principal)
CPT/HCPCS: 73502

== ENCOUNTER 2024-12-02 17:56 | Emergency (ER) | payer MEDICARE, SELFPAY ==
[2024-12-02] VITALS (22 sets, daily range): BP systolic 79–145; BP diastolic 31–67; PULSE 76–109; RESP 13–26; TEMP 39.7; O2SAT 86–98; BMI 44.1
--- OUTSIDE RECORDS SUMMARY | 2024-12-02 18:17 | XMS_ITS ---
Author Organization Unknown TREATMENT PLAN Planned Care Start Date Provider Encounter for Check-up [id number] [facility]
--- OUTSIDE RECORDS SUMMARY | 2024-12-02 18:17 | XMS_ITS ---
Author Organization Unknown Plan of Treatment Description Planned Activity Planned Timing - Telephone encounter May 30, 2024 Patient Care team information Name Category Status Period Participants - - Proposed period not known -
--- NOTE | 2024-12-02 18:25 | XR_ITS ---
PROCEDURE INFORMATION: Exam: XR Chest Exam date and time: 12/02/2024 7:17 PM Age: 74 years old Clinical indication: Tachypnea TECHNIQUE: Imaging protocol: Radiologic exam of the chest. Views: 1 view. COMPARISON: CR XR CHEST 2V 03/08/2024 9:15 AM FINDINGS: Lungs: Unremarkable. No consolidation. Pleural spaces: Unremarkable. No pleural effusion. No pneumothorax. Heart/Mediastinum: Unremarkable. No cardiomegaly. Bones/joints: Unremarkable. IMPRESSION: No acute findings.
--- NOTE | 2024-12-02 18:29 | CT_ITS ---
PROCEDURE INFORMATION: Exam: CT Abdomen And Pelvis With Contrast Exam date and time: 12/02/2024 7:02 PM Age: 74 years old Clinical indication: Nausea and vomiting; Additional info: N/v, urinary symptoms, fever TECHNIQUE: Imaging protocol: Computed tomography of the abdomen and pelvis with contrast. Radiation optimization: All CT scans at this facility use at least one of these dose optimization techniques: automated exposure control; mA and/or kV adjustment per patient size (includes targeted exams where dose is matched to clinical indication); or iterative reconstruction. Contrast material: ISOVUE; Contrast volume: 75 ml; Contrast route: IV; COMPARISON: CT ABDOMEN PELVIS W CON 11/08/2022 5:40 AM FINDINGS: Liver: Fatty infiltration. No mass. Gallbladder and biliary ducts: Normal. No calcified stones. No ductal dilation. Pancreas: Normal. No ductal dilation. Spleen: Normal. No splenomegaly. Adrenal glands: Normal. No mass. Kidneys and ureters: 0.5 cm right mid ureteral calculus with proximal hydroureter. Nonobstructive 0.9 cm right renal calculus. 3.5 cm right renal cyst. No left nephroureterolithiasis or hydroureter. Stomach and bowel: Unremarkable. No obstruction. No mucosal thickening. Appendix: No evidence of appendicitis. Intraperitoneal space: Unremarkable. No free air. No significant fluid collection. Vasculature: Unremarkable. No abdominal aortic aneurysm. Lymph nodes: Unremarkable. No enlarged lymph nodes. Urinary bladder: Unremarkable as visualized. Reproductive: Unremarkable as visualized. Bones/joints: T9, T10, T12, L1 vertebral body level ORIF. No acute fracture. No acute findings. Soft tissues: Unremarkable. IMPRESSION: 1. Right mid ureteral calculus with proximal hydroureter. Nonobstructive right renal calculus. 2. Fatty liver infiltration COMMENTS: Consistent with the [employer]'s Incidental Findings Committee white paper (J Am Humza Radiol 2018): Any incidental renal lesion less than 1 cm or classified as too small to characterize, or any incidental cystic renal lesion characterized as simple-appearing, is likely benign. No follow-up imaging is recommended for these lesions per consensus recommendations based on imaging criteria.
--- NOTE | 2024-12-02 18:39 | ECG_ITS ---
APPROVED REPORT Exam: Resting ECG HR:99 bpm ECG Measurements Heart Rate 99 AXES IN 174 P 43 QRSd 87 QRS 83 QT 303 T -66 QTc [address] DEVIATION AND MODERATE T-WAVE ABNORMALITY, CONSIDER LATERAL ISCHEMIA [-0.1+ mV T-WAVE IN I/aVL/V5/V6] ST DEVIATION AND MODERATE T-WAVE ABNORMALITY, CONSIDER INFERIOR ISCHEMIA [-0.1+ mV T-WAVE IN II/aVF] ABNORMAL ECG UNCONFIRMED REPORT Electronically signed by : Slava Dee, 12/04/2024 15:15:54
[2024-12-02 18:41] LABS: Albumin Level 3.8 g/dl (3.5-5.0); Chloride 107 mmol/L (98-107); Potassium 3.7 mmoL/L (3.5-5.1); Sodium 138 mmol/L (136-145)
[2024-12-02 18:43] LABS: Basophils % 0.1 % (0.1-2.0); Blood Urea Nitrogen 27 mg/dl (9-20); Estimated Glomerular Filt Rate 50 ml/min (>60); GFR (African American) 60 ML/MIN (>60); Hematocrit 31.5 % (42.0-52.0); Hemoglobin 10.1 g/dL (14.1-18.0); Lymphocytes # 0.9 K/mm3 (0.7-4.5); Lymphocytes % 6.2 % (10-50); Mean Corpuscular HGB Conc 32.1 g/dL (31.8-35.4); Mean Corpuscular Hemoglobin 28.4 pg (27.0-31.2); Mean Corpuscular Volume 88.5 fl (80-94); Mean Platelet Volume 10.1 fl (7.4-10.4); Monocytes # 0.8 K/mm3 (0.1-1.0); Monocytes % 5.5 % (1.7-9.3); Neutrophils # 12.9 K/mm3 (1.8-7.8); Neutrophils % 87.2 % (37.0-80.0); Nucleated Red Blood Cells # 0 10^3/uL; Nucleated Red Blood Cells % 0 %; Platelet Count 252 K/mm3 (142-424); Red Blood Count 3.56 M/mm3 (4.60-6.20); Red Cell Distribution Width 14.6 % (11.5-17.5); Red Cell Distribution Width-SD 47.4 fL; White Blood Count 14.8 K/mm3 (4.8-10.8)
[2024-12-02 18:44] LABS: Alanine Aminotransferase 24 U/L (12-78); Albumin/Globulin Ratio 1.1 (1.1-1.8); Alkaline Phosphatase 86 U/L (38-126); Anion Gap 11.7 mEq/L (5-15); Aspartate Amino Transferase 22 U/L (17-59); Bilirubin,Total 0.8 mg/dl (0.2-1.3); Calcium 8.7 mg/dl (8.4-10.2); Carbon Dioxide 23 mmol/L (22.0-30.0); Globulin 3.5 g/dL (1.3-3.2); Glucose 112 mg/dl (74-100); Total Protein,Serum 7.3 g/dl (6.3-8.2)
[2024-12-02] MEDS: ACETAMINOPHEN 1,000MG/100ML VIAL 1000 MG IV (18:45)
[2024-12-02 18:47] LABS: Adenovirus,PCR Not Detected (NotDetected); Bordetella Pertussis Not Detected (NotDetected); Chlamydophila Pneumoniae, PCR Not Detected (NotDetected); Coronavirus 19, PCR Not Detected (NotDetected); Coronavirus 229E Not Detected (NotDetected); Coronavirus NL63 Not Detected (NotDetected); Coronavirus OC43 Not Detected (NotDetected); Coronovirus HKU1,PCR Not Detected (NotDetected); Human Metapneumovirus Not Detected (NotDetected); Influenza A, PCR Not Detected (NotDetected); Influenza AH1, 2009 Not Detected (NotDetected); Influenza AH1, PCR Not Detected (NotDetected); Influenza AH3,PCR Not Detected (NotDetected); Influenza B, PCR Not Detected (NotDetected); Mycoplasma Pneumoniae, PCR Not Detected (NotDetected); Parainfluenza 1, PCR Not Detected (NotDetected); Parainfluenza 2, PCR Not Detected (NotDetected); Parainfluenza 3, PCR Not Detected (NotDetected); Parainfluenza 4, PCR Not Detected (NotDetected); Respiratory Syncytial Virus Not Detected (NotDetected); Rhinovirus/Enterovirus Not Detected (NotDetected)
[2024-12-02 18:51] LABS: Lactic Acid 2.6 mmol/L (0.7-2.1)
[2024-12-02 18:56] LABS: Troponin I < 0.01 ng/ml (0.00-0.034)
[2024-12-02] MEDS: 0.9 % SODIUM CHLORIDE 1000ML 1,000 ML 999 ML IV (19:00)
[2024-12-02] MEDS: ONDANSETRON 4MG/2ML VIAL 4 MG IV (19:01)
[2024-12-02] MEDS: SODIUM CHLORIDE 0.9% 10ML SYR (RAD ONLY) 10 ML IV (19:21)
[2024-12-02] MEDS: IOPAMIDOL-370 (76%);100ML BOTTLE 75 ML IV (19:21)
--- NOTE | 2024-12-02 19:49 | PC.NURSE ---
bladder scan showed 74 ml. Tierra SAVAGE notified.
[2024-12-02] MEDS: PIPERCILLIN/TAZO 3.375 GM in 0.9 % SODIUM CHLORIDE 50 ML IV (19:50)
[2024-12-02 20:41] LABS: HIV Combo NEGATIVE (Negative)
[2024-12-02] MEDS: VANCOMYCIN HCL 2,500 MG in 0.9 % SODIUM CHLORIDE 500 ML 250 MG IV (20:45)
[2024-12-02 20:48] LABS: Hepatitis C Ab Qual. W/ RFX NEGATIVE (Negative)
[2024-12-02] MEDS: 0.9 % SODIUM CHLORIDE 1000ML 2,000 ML 1975 ML IV (20:52)
--- NOTE | 2024-12-02 20:53 | PC.NURSE ---
pt is receiving a total of 2L NS Per Dr Dee
[2024-12-02] MEDS: NOREPINEPHRINE BITARTRATE/D5W 8 MG/250 ML PLAST..BAG 3.75 MG IV (21:32)
--- NOTE | 2024-12-02 21:46 | HMH.EDGENADL ---
Discharge Plan Disposition Patient Disposition: Xfer Other Prescriptions Prescriptions: No Action lisinopril 40 mg tablet 40 mg PO DAILY tamsulosin 0.4 mg capsule 0.4 mg PO DAILY gabapentin 400 mg capsule 400 mg PO TID finasteride 5 mg tablet 5 mg PO DAILY glipizide 2.5 mg tablet extended release 24hr 5 mg PO DAILY pioglitazone 30 mg tablet 30 mg PO DAILY amlodipine 5 mg tablet 5 mg PO DAILY Rybelsus 14 mg tablet 14 mg PO DAILY atorvastatin 40 MG tablet 40 mg PO HS aspirin 81 MG tablet,delayed release (DR/EC) 81 mg PO DAILY loratadine 10 MG tablet 10 mg PO DAILY fluticasone propionate 120 SPR/BOT bottle 1 spr intranasal DAILY Referrals Follow up/Referrals: Steve Valle MD [Primary Care Provider] - See instructions Clinical Impressions Clinical Impression: Septic shock, Hydronephrosis concurrent with and due to calculi of kidney and ureter, Acute UTI Print Language Print Language: [place] Discharge ED Provider: Edwin [facility] Adult HPI General Chief complaint: PAIN Stated complaint: SOA,weakness,freq.urination,chills Time Seen by Provider: 12/02/24 18:18 Mode of Arrival: Family Vehicle Source of Information: Patient, Spouse and Medical Record Description of Symptoms (Recalled from ER Triage Doc. by RN): Pt c/o severe back pain with nause anad vomiting, chills, and urinary pain. States he was seen at PCP (Matias) 2 wk ago for chills and n/v and given an ABX that helped but it returned. History of Present Illness HPI narrative: Patient is a 74-year-old male with a history of sepsis and obstructing kidney stone who presents today with similar symptoms including back pain nausea vomiting chills dysuria and high fevers at home. Cannot localize laterality of his back pain but states its mainly in the mid aspect of his mid lower back. Related Data Home Medications ?Medication ?Instructions ?Recorded ?Confirmed aspirin 81 mg tablet,delayed 81 mg PO DAILY HEART HEALTH 12/03/18 08/23/24 release atorvastatin 40 mg tablet 40 mg PO HS Cholesterol 12/03/18 08/23/24 fluticasone propionate 50 1 spr intranasal DAILY Allergy 07/28/20 08/23/24 mcg/actuation nasal symptoms spray,suspension loratadine 10 mg tablet 10 mg PO DAILY Allergy symptoms 07/28/20 08/23/24 finasteride 5 mg tablet 5 mg PO DAILY urinary retention 10/27/22 08/23/24 gabapentin 400 mg capsule 400 mg PO TID Pain 10/27/22 08/23/24 lisinopril 40 mg tablet 40 mg PO DAILY High blood pressure 10/27/22 08/23/24 tamsulosin 0.4 mg capsule 0.4 mg PO DAILY enlarged prostate 10/27/22 08/23/24 glipizide 2.5 mg tablet, extended 5 mg PO DAILY Diabetes 01/13/23 08/23/24 release 24 hr amlodipine 5 mg tablet 5 mg PO DAILY 08/25/23 08/23/24 pioglitazone 30 mg tablet 30 mg PO DAILY 08/25/23 08/23/24 semaglutide 14 mg tablet (Rybelsus) 14 mg PO DAILY 08/25/23 08/23/24 Allergies Allergy/AdvReac Type Severity Reaction Status Date / Time No Known Allergies Allergy Verified 08/23/24 13:56 [facility] Disclaimer: The information contained in this section may have been updated after the patient was seen, as this information can be updated by other users. Medical History History of fractured kneecap Sleep disorder breathing Witnessed apneic spells Snoring ALDEN (obstructive sleep apnea) severe nonpositional ALDEN, excellent CPAP compliance, with hypoxemia resolved by CPAP. Neurogenic bladder Thalamic infarction CVA (cerebral vascular accident) Hypercholesteremia Hypertension Diabetes Surgical History History of colonoscopy History of hernia repair History of lumbar surgery Family History Other Coronary artery disease Hypertension Social History Smoking Status: Unknown if ever smoked second hand exposure: No alcohol intake: current alcohol intake frequency: a few times a month substance use type: denies use current occupational status: retired Travel in the last 8 weeks?: None household members: significant other housing: house current occupational exposures/hazards: No caffeine: Yes Have you lived/traveled outside [place] in past 30 days?: No Contact w/someone who lives/traveled outside US past 30 days?: No Exposure to someone with infectious disease in past 14 days?: No Do you have a fever (greater than 100.4 F or 38 C)?: No Have you tested positive for COVID-19?: No Exposed to someone with COVID-19 in past 14 days?: No Do you have a sore throat?: No Do you have a cough?: No Do you have any weakness?: Yes Do you have any diarrhea?: No Are you experiencing any unusual bleeding?: No Do you have any muscle aches/pain?: No Do you have any abdominal pain?: No Are you experiencing loss of taste or smell?: No Other Medical History Have you received the Flu Vaccine for this season: Yes Have you received the Pneumonia Vaccine: Yes ROS Obtained: Yes All systems reviewed & no additional complaints except as documented Physical Exam General General appearance: alert and in no apparent distress Respiratory Respiratory exam: Present normal lung sounds bilaterally Cardiovascular Cardiovascular exam: Present tachycardia Abdominal Exam Abdominal exam: Present soft; Absent distention or tenderness Back Exam Back exam: Absent CVA tenderness (R) or CVA tenderness (L) Neurological Exam Neurological exam: Present alert and oriented X3 Medical Decision Making Medical Records Screening: Per USPSTF and CDC recommendations, given the prevalence of disease in our region, it is our hospital?s policy to screen for HIV and viral Hepatitis for all patients aged 18 and over and those with ongoing risk factors. Tod Inquiry Pt receiving controlled substance: No Vital Signs: 12/02/24 18:15 12/02/24 19:39 12/02/24 19:43 Temperature 103.5 F H Temperature Source Oral Pulse Rate 98 H 98 H Pulse Rate [Right] 109 H Respiratory Rate 26 H 19 14 Blood Pressure 99/53 L 81/45 L Blood Pressure [Right Arm] 145/59 H Blood Pressure Mean [Right Arm] 87 Blood Pressure Source [Right Arm] Automatic Cuff 02 Sat by Pulse Oximetry 95 86 L Oxygen Delivery Method Room Air 12/02/24 19:46 12/02/24 20:00 12/02/24 20:30 Temperature Temperature Source Pulse Rate 98 H 85 86 Pulse Rate [Right] Respiratory Rate 14 21 14 Blood Pressure 104/47 L 89/42 L 80/48 L Blood Pressure [Right Arm] Blood Pressure Mean [Right Arm] Blood Pressure Source [Right Arm] 02 Sat by Pulse Oximetry 91 L 90 L 93 L Oxygen Delivery Method 12/02/24 20:37 12/02/24 20:45 12/02/24 20:48 Temperature Temperature Source Pulse Rate 86 84 87 Pulse Rate [Right] Respiratory Rate 25 H 17 19 Blood Pressure 93/48 L 79/31 L 96/35 L Blood Pressure [Right Arm] Blood Pressure Mean [Right Arm] Blood Pressure Source [Right Arm] 02 Sat by Pulse Oximetry 94 L 98 Oxygen Delivery Method 12/02/24 21:00 12/02/24 21:28 12/02/24 21:30 Temperature Temperature Source Pulse Rate 80 81 77 Pulse Rate [Right] Respiratory Rate 17 17 17 Blood Pressure 89/45 L 93/44 L 93/44 L Blood Pressure [Right Arm] Blood Pressure Mean [Right Arm] Blood Pressure Source [Right Arm] 02 Sat by Pulse Oximetry 96 93 L 95 Oxygen Delivery Method Lab Data Lab results reviewed: Yes I reviewed the patient's lab results. Lab Results 12/02/24 18:20: WBC 14.8 H, RBC 3.56 L, Hgb 10.1 L, Hct 31.5 L, MCV 88.5, MCH 28.4, MCHC 32.1, RDW 14.6, Plt Count 252, MPV 10.1, Neut % (Auto) 87.2 H, Lymph % (Auto) 6.2 L, Arroyo % (Auto) 5.5, Eos % (Auto) 0.0 L, Baso % (Auto) 0.1, Neut # (Auto) 12.9 H, Lymph # (Auto) 0.9, Arroyo # (Auto) 0.8, Eos # (Auto) 0.0, Baso # (Auto) 0.0, Sodium 138, Potassium 3.7, Chloride 107, Carbon Dioxide 23, Anion Gap 11.7, BUN 27 H, Creatinine 1.40 H, Estimated GFR 50 L, Est GFR ( Amer) 60, Glucose 112 H, Lactate 2.6 H, Calcium 8.7, Total Bilirubin 0.8, AST 22, ALT 24, Alkaline Phosphatase 86, Troponin I < 0.01, Total Protein 7.3, Albumin 3.8, Globulin 3.5 H, Albumin/Globulin Ratio 1.1, HCV Ab FERNIE w/Rflx PCR Qn Negative, HIV Ag/Ab Combo Qual Negative 12/02/24 18:43: Chlamy pneumoniae PCR Not detected, Adenovirus (PCR) Not detected, B. pertussis DNA (PCR) Not detected, Coronavirus OC43 (PCR) Not detected, Coronavirus HKU1 (PCR) Not detected, Coronavirus 229E (PCR) Not detected, SARS-CoV-2 (PCR) Not detected, Coronavirus NL63 (PCR) Not detected, Human Metapneumovir PCR Not detected, Influenza A (H1) PCR Not detected, Influ A (H1N1/09) PCR Not detected, Influenza A (H3) PCR Not detected, Influenza Type A (PCR) Not detected, Influenza Type B (PCR) Not detected, M. pneumoniae (PCR) Not detected, Parainfluenza 1 (PCR) Not detected, Parainfluenza 2 (PCR) Not detected, Parainfluenza 3 (PCR) Not detected, Parainfluenza 4 (PCR) Not detected, RSV (PCR) Not detected, Entero/Rhino (PCR) Not detected 12/02/24 18:20 12/02/24 18:20 Orders (Tests/Meds): ED MEDICATIONS Generic Name Dose Route Start Last Admin Trade Name Freq PRN Reason Stop Dose Admin Piperacillin Sod/Tazobactam 50 mls @ 100 mls/hr 12/02/24 19:45 12/02/24 19:50 Sod 3.375 gm/ Sodium Chloride IV 12/12/24 19:44 100 mls/hr Q8H CHRISTIANO Administration Vancomycin HCl 2,500 mg/ 500 mls @ 250 mls/hr 12/02/24 20:00 12/02/24 20:45 Sodium Chloride IV 12/02/24 21:59 250 mls/hr ONCE ONE Administration Norepinephrine/Dextrose 8 mg in 250 mls @ 3.75 mls/hr 12/02/24 21:30 12/02/24 21:32 Levophed 8mg/250ml-D5w Premix IV 01/01/25 21:29 2 mcg/min .Q24H CHRISTIANO 3.75 mls/hr Administration Protocol 2 MCG/MIN Miscellaneous 1 each 12/02/24 19:45 12/02/24 20:43 Vancomycin Consult Request NOTAPPLIC 01/01/25 19:44 Not Given CONSULT PHARMACY CHRISTIANO Sodium Chloride 10 ml 12/02/24 19:20 12/02/24 19:21 Sodium Chloride 0.9% 10ml Syr (Rad Only) IV 01/01/25 19:19 10 ml NEEDED PRN Administration Maintain IV Site Discontinued Medications Generic Name Dose Route Start Last Admin Trade Name Ector PRN Reason Stop Dose Admin Acetaminophen 1,000 mg 12/02/24 18:28 12/02/24 18:58 Acetaminophen 500mg Tab PO 12/02/24 18:29 Not Given ONCE ONE Acetaminophen 1,000 mg 12/02/24 19:30 12/02/24 18:45 Acetaminophen 1,000mg/100ml Vial IV 12/02/24 19:31 1,000 mg ONCE ONE Administration Sodium Chloride 1,000 mls @ 999 mls/hr 12/02/24 18:28 12/02/24 19:00 Sod Chlor 0.9% 1000ml Bag IV 12/02/24 19:28 999 mls/hr .Q1H1M ONE Administration Sodium Chloride 3,950 mls @ 1,975 mls/hr 12/02/24 19:15 12/02/24 20:42 Sod Chlor 0.9% 1000ml Bag 30 ml/kg infuse over 2 hr (3950 ml) 12/02/24 21:14 Not Given IV .Q2H ONE Sodium Chloride 2,000 mls @ 1,975 mls/hr 12/02/24 20:45 12/02/24 20:52 Sod Chlor 0.9% 1000ml Bag 30 ml/kg (3950 ml) 12/02/24 21:45 1,975 mls/hr IV Administration .Q1H1M ONE Iopamidol 75 ml 12/02/24 19:20 12/02/24 19:21 Iopamidol-370 (76%);100ml Bottle IV 12/02/24 19:21 75 ml ONCE ONE Administration Ondansetron HCl 4 mg 12/02/24 18:25 12/02/24 19:01 Ondansetron 4mg/2ml Vial IV 12/02/24 18:26 4 mg ONCE ONE Administration ORDERS Category Date Time Status CT abdomen pelvis w con Stat Cat Scan 12/02/24 18:29 Completed XR chest portable Stat Exams 12/02/24 18:25 Completed CBC w/Auto Diff [Complete Blood Count Auto Diff] Stat Lab 12/02/24 18:20 Completed CMP [Comprehensive Metabolic Panel] Stat Lab 12/02/24 18:20 Completed Full Resp Panel w/COVID ([facility]) Routine Lab 12/02/24 18:43 Completed HIV Combo Stat Lab 12/02/24 18:20 Completed Hepatitis C Ab Qual. W/ RFX Stat Lab 12/02/24 18:20 Completed Lactic Acid Stat Lab 12/02/24 18:20 Completed Troponin I Q3H Lab 12/02/24 21:41 Received Troponin I Q3H Lab 12/03/24 00:30 Ordered Troponin I Stat Lab 12/02/24 18:20 Completed Urinalysis and Microscopic Stat Lab 12/02/24 18:29 Ordered Blood Culture Stat Micro 12/02/24 18:47 Received Medical Decision Narrative: Patient is a 74-year-old male presenting today with initially tachycardia tachypnea fever of 103 back pain overall generalized malaise and not feeling well. Noncontrasted CT scan was performed I personally interpreted which shows a 5 mm mid ureteral stone with associated hydronephrosis and hydroureter with significant perinephric stranding consistent with pyelonephritis and obstructing kidney stone. This is a surgical emergency. Initially patient was hemodynamically stable with a mild tachycardia however he has developed progressive hypotension while in the emergency department. 30 cc/kg of fluids were administered. Serial perfusion assessment shows that patient is overall doing okay but his noninvasive blood pressures have dropped significantly after 2 L of fluid his blood pressure is currently 93/44 with maps less than 65 and peripheral norepinephrine has been administered. Patient was given Vanco and Zosyn. We spoke with Dr. Wyatt Vann with [facility]. Images were power shared and a disc with images were sent with the patient. They accepted the patient for emergent surgical intervention. Working diagnosis is septic shock in the setting of obstructing kidney stone urinary tract infection. Patient and family are agreeable and aware of this plan. Critical Care Critical Care Time Critical Care Time: Yes Attestation: On 12/02/24, the high probability of a clinically significant, sudden or life threatening deterioration of the following system(s) required my full and direct attention, intervention and personal management. The time I documented below is in addition to time spent performing reported procedures but includes the following listed in this critical care notation. Total Time Total Critical Care Time: 35
[2024-12-02 22:04] LABS: Microscopic, Urine URINE MICROSCOPIC (MICROSCOPIC)
[2024-12-02 22:06] LABS: Bilirubin,Urine Negative (Negative); Blood, Urine 1+ (Negative); Color,Urine YELLOW (Yellow); Glucose,Urine (UA) Negative (Negative); Ketones,Urine Negative (Negative); Leukocyte Esterase,Urine 2+ (Negative); Nitrate,Urine POSITIVE (Negative); Protein,Urine 2+ (Negative)
[2024-12-02 22:07] LABS: Appearance,Urine Slightly Cloudy (Clear)
[2024-12-02 22:07] LABS: Troponin I 0.04 ng/ml (0.00-0.034)
[2024-12-02 22:15] LABS: Bacteria,Urine 1+ /lpf; Squamous Epithelial Cell,Urine Occasional #/hpf (0-5); WBC,Urine 20-50 #/hpf (0-3)
[2024-12-02 22:36] LABS: Reflex Lactic Add Lactic Reflex
--- NOTE | 2024-12-02 22:49 | PC.NURSE ---
awaiting transport to [facility] ED. Remains on levo gtt and vanc. family at bedside.
--- NOTE | 2024-12-02 23:22 | PC.NURSE ---
daughter called and updated on POC. states she may be able to come here after 4pm tomorrow.
[2024-12-02 23:51] LABS: Lactic Acid Follow Up (RFLX 1) 0.8 mmol/L (0.7-2.1)
[2024-12-03] VITALS: BP 126/58; PULSE 78; RESP 16; O2SAT 96
--- NOTE | 2024-12-03 00:16 | PC.NURSE ---
[facility] notifed of transfer to for pt
[2024-12-03 00:21] VITALS: BP 117/74; PULSE 75; RESP 16; O2SAT 95
[2024-12-03 00:30] VITALS: BP 112/57; PULSE 74; RESP 19; O2SAT 95
[2024-12-03 00:40] VITALS: BP 105/61; PULSE 78; RESP 17; O2SAT 96
[2024-12-03 00:41] VITALS: BP 106/53; PULSE 76; RESP 16; O2SAT 94
[2024-12-03 00:58] LABS: Troponin I 0.04 ng/ml (0.00-0.034)
--- NOTE | 2024-12-03 01:20 | PC.NURSE ---
called Pedro SCOTT at ED to give update on pts care. Haydee currently on standby.
[2024-12-03 02:39] VITALS: BP 117/63; PULSE 74; RESP 16; TEMP 37.1; O2SAT 98
[2024-12-03 12:27] LABS: Acinetobacter calcoaceticus-ba Not Detected; Bacteroides fragilis Not Detected; CTX-M Not Detected; Candida albicans Not Detected; Candida auris Not Detected; Candida glabrata Not Detected; Candida krusei Not Detected; Candida parapsilosis Not Detected; Candida tropicalis Not Detected; Cryptococcus neoformans/gattii Not Detected; Enterobacter cloacae complex Not Detected; Enterobacterales Detected; Enterococcus faecalis Not Detected; Enterococcus faecium Not Detected; Haemophilus influenzae Not Detected; IMP Not Detected; KPC Not Detected; Klebsiella aerogenes Not Detected; Klebsiella pneumoniae grp Not Detected; Listeria monocytogenes Not Detected; NDM Not Detected; Neisseria meningitidis Not Detected; OXA-48-like Not Detected; Proteus spp. Not Detected; Pseudomonas aeruginosa Not Detected; Salmonella spp. Not Detected; Serratia marcescens Not Detected; Staphylococcus epidermidis Not Detected; Staphylococcus lugdunensis Not Detected; Staphylococcus spp. Not Detected; Stenotrophomonas maltophilia Not Detected; Streptococcus agalactiae(GrpB) Not Detected; Streptococcus pneumoniae Not Detected; Streptococcus pyogenes Group A Not Detected; Streptococcus spp. Not Detected; VIM Not Detected; mcr-1 Not Detected
--- NOTE | 2024-12-03 20:57 | PC.NURSE ---
Positive blood culture called to Dr Chaudhary at .
--- NOTE | 2024-12-09 13:12 | PC.NURSE ---
pts final blood culture and urine culture results faxed to [facility] ED as pt was transferred there.
== END 2024-12-03 02:41 | disposition other institution (70) ==
PROVIDERS: Physician Assistant; Emergency Provider Student in an Organized Health Care Education/Training Program; PCP Family Medicine
DX: A41.89 Other specified sepsis (principal); R65.21 Severe sepsis with septic shock; N13.2 Hydronephrosis with renal and ureteral calculous obstruction; N13.4 Hydroureter; N10 Acute pyelonephritis; R50.9 Fever, unspecified; M54.59 Other low back pain
CPT/HCPCS: 71045; 74177; 80053; 81001; 83605; 84484; 85025; 86803; 87040; 87077; 87086; 87088; 87154; 87186; 87389; 87633; 93005; 96361; 96365; 96366; 96375; 99291; J0131; J2405; J2543; J3370; J7030; Q9967